=== PATIENT | male | born 1950 | race Caucasian/White ===

== ENCOUNTER 2024-05-30 07:43 | Inpatient (IN) | payer MEDICARE, OTHER ==
[~2024-05-30] VITALS: Ht 188 cm; Wt 105.7 kg
[~2024-05-30 07:43] MED LIST: ATOR40TA PO; FLUT16SP16 BNOSTRILS; FURO20TA4 PO; GLIM4TAB PO; METO25TA4 PO; OMEP20TA5 PO; SEMA1PEN SQ; TEZSPIRE SQ
[2024-05-30] MEDS ORDERED: ACETAMINOPHEN ES 500 MG TABLET ONE ×2 (08:21)
[2024-05-30] MEDS: ACETAMINOPHEN ES 500 MG TABLET PO ONE (08:22)
[2024-05-30] MEDS ORDERED: OXYMETAZOLINE HCL NASAL SPRAY 30 ML BOTTLE NS ONE (09:55)
[2024-05-30] MEDS ORDERED: dexaMETHasone SOD PHOSPHATE 1 ML ONE (10:08)
[2024-05-30] MEDS ORDERED: LIDOCAINE 2%-EPI 1:100,000 30 ML VIAL ONE (10:08)
[2024-05-30] MEDS ORDERED: VANCOMYCIN 1 GM VIAL ONE (10:09)
[2024-05-30] MEDS ORDERED: FENTANYL PF 100MCG/2ML AMPUL ONE (10:11)
[2024-05-30] MEDS ORDERED: MIDAZOLAM HCL 2 MG/2ML VIAL ONE (10:11)
[2024-05-30] MEDS ORDERED: ROCURONIUM BROMIDE 50 MG/5 ML ONE (10:13)
[2024-05-30] MEDS ORDERED: FAMOTIDINE/PF INJ 20 MG/2 ML VIAL IV ONE (10:13)
[2024-05-30] MEDS ORDERED: MEPERIDINE HCL/PF 50 MG/ML DISP.SYRIN IV PRN (10:30)
[2024-05-30] MEDS ORDERED: HYDROMORPHONE 1 MG/1 ML DISP.SYRIN IV PRN ×2 (10:30→15:00)
[2024-05-30] MEDS ORDERED: LABETALOL HCL IV 100MG VIAL IV PRN (10:30)
[2024-05-30] MEDS ORDERED: hydrALAZINE HCL IV 20 MG VIAL IV PRN (10:30)
[2024-05-30] MEDS ORDERED: EPHEDRINE SULFATE IV 50MG VIAL IV PRN (10:30)
[2024-05-30] MEDS ORDERED: ONDANSETRON HCL/PF 4 MG/2 ML VIAL IVP PRN (10:30)
[2024-05-30] MEDS ORDERED: FENTANYL PF 100MCG/2ML AMPUL IV PRN (10:30)
[2024-05-30] MEDS ORDERED: SACU1TAB7 PO (14:05)
[2024-05-30] MEDS ORDERED: EZET10TA16 PO (14:05)
[2024-05-30] MEDS ORDERED: METF-442 PO (14:05)
[2024-05-30] MEDS: IV NS 0.9% 1,000 ML IV PRN (14:44)
[2024-05-30] MEDS ORDERED: ONDANSETRON HCL/PF 4 MG/2 ML VIAL IV PRN (15:00)
[2024-05-30] MEDS: ACETAMINOPHEN 325 MG TABLET PO PRN (15:55)
[2024-05-30 16:00] VITALS: BP 158/88; TEMP 99; O2SAT 96
[2024-05-30] MEDS ORDERED: DEXTROSE 50%-WATER 50 ML DISP.SYRIN IV PRN (16:30)
[2024-05-30] MEDS ORDERED: *INSULIN REGULAR(HUMULIN R)HUM 100 UNIT/ML VIAL SQ PRN (16:30)
[2024-05-30] MEDS ORDERED: Medication Not On Formulary EA (Semaglutide (Ozempic) 1 MG) SQ SCH (16:30)
[2024-05-30] MEDS: BLOOD SUGAR DIAGNOSTIC 1 EACH STRIP VI SCH (16:50)
[2024-05-30] MEDS: FLUTICASONE PROPIONATE 16 GM BOTTLE NS SCH (16:56)
[2024-05-30] MEDS: GLIMEPIRIDE 4 MG TABLET PO SCH (16:57)
[2024-05-30] MEDS ORDERED: Medication Not On Formulary EA (Metformin Hcl 1,000 MG) PO SCH (17:00)
[2024-05-30] MEDS: SACUBITRIL/VALSARTAN 49/51MG TABLET PO SCH (17:06)
[2024-05-30 21:59] VITALS: BP 125/81; TEMP 98.6; O2SAT 94
[2024-05-30 22:00] VITALS: BP 125/81; TEMP 98.6; O2SAT 93
[2024-05-30] MEDS: VANCOMYCIN 1 GM in IV D5W 250ml IV SCH (23:00)
[2024-05-30] MEDS: ATORVASTATIN 40 MG TABLET PO SCH (23:00)
[2024-05-31] MEDS: INSULIN REGULAR, HUMAN 100 UNIT/ML 3 ML VIAL SQ PRN (06:29)
[2024-05-31 07:30] VITALS: BP 156/85; TEMP 98.2; O2SAT 96
[2024-05-31] MEDS: FUROSEMIDE 20 MG TABLET PO SCH (09:01)
[2024-05-31 09:02] VITALS: BP 156/85
[2024-05-31] MEDS: METOPROLOL SUCCINATE 25 MG TAB.SR.24H PO SCH (09:02)
[2024-05-31] MEDS: EZETIMIBE 10 MG TABLET PO SCH (09:03)
== END 2024-05-31 11:42 | disposition home or self-care (01) | DRG 497 ==
LOC: DS 07:43 → MED 13:29
PROVIDERS: ADMIT Internal Medicine; ATTEND Internal Medicine
PROC: 0N5R0ZZ Destruction of Maxilla, Open Approach (ICD-10-PCS; 2024-05-30)
PROC: 0NSR04Z Reposition Maxilla with Internal Fixation Device, Open Approach (ICD-10-PCS; 2024-05-30)
PROC: 0NUR07Z Supplement Maxilla with Autologous Tissue Substitute, Open Approach (ICD-10-PCS; 2024-05-30)
PROC: 0NPW04Z Removal of Internal Fixation Device from Facial Bone, Open Approach (ICD-10-PCS; principal; 2024-05-30 10:15)
DX: T84.69XA Infection and inflammatory reaction due to internal fixation device of other site, initial encounter (principal); M27.2 Inflammatory conditions of jaws; Z79.84 Long term (current) use of oral hypoglycemic drugs; I10 Essential (primary) hypertension; E11.9 Type 2 diabetes mellitus without complications; E78.5 Hyperlipidemia, unspecified; Z79.899 Other long term (current) drug therapy; Z87.891 Personal history of nicotine dependence; Y83.8 Other surgical procedures as the cause of abnormal reaction of the patient, or of later complication, without mention of misadventure at the time of the procedure; Y92.009 Unspecified place in unspecified non-institutional (private) residence as the place of occurrence of the external cause; K13.70 Unspecified lesions of oral mucosa; K12.30 Oral mucositis (ulcerative), unspecified
CPT/HCPCS: 82962-TC; A4223; A4338; C1713; G0378; J1100; J1308; J1815; J2250; J2405; J2704; J3010; J3370; J3490; J7030; J7060

== ENCOUNTER 2024-11-08 08:39 | Inpatient (IN) | payer MEDICARE, OTHER ==
[~2024-11-08] VITALS: Ht 185.4 cm; Wt 102.1 kg
[~2024-11-08 08:39] MED LIST changes: +EZET10TA16 PO; +METF-442 PO; -OMEP20TA5 PO; +SACU1TAB7 PO; -TEZSPIRE SQ
[2024-11-08 09:00] VITALS: BP 124/84; TEMP 98.2; O2SAT 100
[2024-11-08 09:54] LABS: PLATELET COUNT (AUTO) 292 K/uL (150-450); RED BLOOD CELL COUNT(AUTO) 4.54 MIL/uL (4.5-6.0); RED CELL DISTRIBUTION WIDTH 14.6 % (11.5-15.0); WHITE BLOOD COUNT (AUTO) 5.3 K/uL (4.3-11.0)
[2024-11-08] MEDS ORDERED: Z GUARD REMEDY 4 OZ OINT TP PRN (10:00)
[2024-11-08] MEDS ORDERED: MAGNESIUM HYDROXIDE 30 ML UDC PO PRN (10:00)
[2024-11-08] MEDS ORDERED: ZOLPIDEM TARTRATE 5 MG TABLET PO PRN (10:00)
[2024-11-08] MEDS ORDERED: ACETAMINOPHEN 325 MG TABLET PO PRN ×2 (10:00→15:30)
[2024-11-08] MEDS ORDERED: MAG HYDROX/AL HYDROX/SIMETH 30 ML UDC PO PRN (10:00)
[2024-11-08] MEDS ORDERED: ONDANSETRON HCL/PF 4 MG/2 ML VIAL IVP PRN (10:00)
[2024-11-08 10:08] LABS: ASPARTATE AMINOTRANSFERASE 16.0 U/L (15-37); CALCIUM, SERUM 8.7 mg/dL (8.5-10.1); CREATININE 0.9 mg/dL (0.6-1.3); SODIUM SERUM 143.0 mmol/L (136-145); TOTAL PROTEIN, SERUM 7.2 g/dL (6.4-8.2); UREA NITROGEN, BLOOD 14.0 mg/dL (7-18)
[2024-11-08 12:29] LABS: INR 3.28 (0.91-1.10)
[2024-11-08] MEDS ORDERED: SUGAMMADEX SODIUM 200 MG/2 ML VIAL IV ONE (12:49)
[2024-11-08] MEDS ORDERED: FENTANYL PF 100MCG/2ML AMPUL ONE (12:49)
[2024-11-08] MEDS ORDERED: OXYMETAZOLINE HCL NASAL SPRAY 30 ML BOTTLE NS ONE (12:50)
[2024-11-08] MEDS ORDERED: ROCURONIUM BROMIDE 50 MG/5 ML ONE (12:50)
[2024-11-08] MEDS ORDERED: dexaMETHasone SOD PHOSPHATE 1 ML ONE (13:34)
[2024-11-08] MEDS ORDERED: LIDOCAINE 2%-EPI 1:100,000 30 ML VIAL ONE (13:34)
[2024-11-08] MEDS ORDERED: VANCOMYCIN 1 GM VIAL ONE (13:34)
[2024-11-08] MEDS ORDERED: ONDANSETRON HCL/PF 4 MG/2 ML VIAL IV PRN (15:30)
[2024-11-08] MEDS ORDERED: HYDROMORPHONE 1 MG/1 ML DISP.SYRIN IV PRN (15:30)
[2024-11-08 16:00] VITALS: BP 170/86; TEMP 98.2; O2SAT 96
[2024-11-08] MEDS: GLIMEPIRIDE 4 MG TABLET PO SCH (17:05)
[2024-11-08] MEDS: FLUTICASONE PROPIONATE 16 GM BOTTLE NS SCH (17:05)
[2024-11-08] MEDS ORDERED: CLONIDINE HCL 0.1 MG TABLET PO PRN (18:00)
[2024-11-08] MEDS: IV NS 0.9% 1,000 ML IV PRN (18:06)
[2024-11-08 19:07] VITALS: BP 158/88
[2024-11-08 20:00] VITALS: BP 158/88; TEMP 98.1; O2SAT 9
[2024-11-08 20:39] VITALS: BP 136/72
[2024-11-08] MEDS: ATORVASTATIN 40 MG TABLET PO SCH (21:05)
[2024-11-09] MEDS: VANCOMYCIN 1 GM in IV D5W 250ml IV SCH (00:22)
[2024-11-09 06:58] LABS: CALCIUM, SERUM 8.4 mg/dL (8.5-10.1); CREATININE 0.7 mg/dL (0.6-1.3); SODIUM SERUM 136.0 mmol/L (136-145); UREA NITROGEN, BLOOD 10.0 mg/dL (7-18)
[2024-11-09 07:10] LABS: PLATELET COUNT (AUTO) 226 K/uL (150-450); RED BLOOD CELL COUNT(AUTO) 4.93 MIL/uL (4.5-6.0); RED CELL DISTRIBUTION WIDTH 14.9 % (11.5-15.0); WHITE BLOOD COUNT (AUTO) 8.3 K/uL (4.3-11.0)
[2024-11-09] MEDS: METFORMIN 500 MG TABLET PO SCH (09:21)
[2024-11-09] MEDS: FUROSEMIDE 20 MG TABLET PO SCH (09:21)
[2024-11-09] MEDS: EZETIMIBE 10 MG TABLET PO SCH (09:21)
[2024-11-09] MEDS: METOPROLOL SUCCINATE 25 MG TAB.SR.24H PO SCH (09:22)
[2024-11-09 09:28] VITALS: BP 161/86
== END 2024-11-09 13:30 | disposition home or self-care (01) | DRG 908 ==
LOC: DS 08:39 → MED 08:41
PROVIDERS: ADMIT Nurse Practitioner Acute Care; ATTEND Nurse Practitioner Acute Care
PROC: 0NPW04Z Removal of Internal Fixation Device from Facial Bone, Open Approach (ICD-10-PCS; 2024-11-08)
PROC: 0N5R0ZZ Destruction of Maxilla, Open Approach (ICD-10-PCS; principal; 2024-11-08 12:40)
DX: T86.831 Bone graft failure (principal); T84.69XA Infection and inflammatory reaction due to internal fixation device of other site, initial encounter; Y92.009 Unspecified place in unspecified non-institutional (private) residence as the place of occurrence of the external cause; I10 Essential (primary) hypertension; Z79.84 Long term (current) use of oral hypoglycemic drugs; Z79.51 Long term (current) use of inhaled steroids; Z79.85 Long-term (current) use of injectable non-insulin antidiabetic drugs; I50.9 Heart failure, unspecified; I11.0 Hypertensive heart disease with heart failure; E78.5 Hyperlipidemia, unspecified; E11.9 Type 2 diabetes mellitus without complications; Z79.899 Other long term (current) drug therapy; I35.9 Nonrheumatic aortic valve disorder, unspecified; D16.4 Benign neoplasm of bones of skull and face; M89.38 Hypertrophy of bone, other site; Y83.2 Surgical operation with anastomosis, bypass or graft as the cause of abnormal reaction of the patient, or of later complication, without mention of misadventure at the time of the procedure; Y83.8 Other surgical procedures as the cause of abnormal reaction of the patient, or of later complication, without mention of misadventure at the time of the procedure
CPT/HCPCS: 36415; 71045-TC; 80048-TC; 80053-TC; 82962-TC; 85025-TC; 85610-TC; 85730-TC; A4217; A4223; A4338; G0378; J1100; J2405; J2704; J3010; J3373; J3490; J7030; J7040; J7060